=== PATIENT | male | born 1960 | race Caucasian/White ===

== ENCOUNTER 2021-03-13 10:34 | Inpatient (IN) | payer SELFPAY ==
[2021-03-13] VITALS (11 sets, daily range): BP systolic 128–184; BP diastolic 66–100
[~2021-03-13] VITALS: Ht 172.7 cm; Wt 60.4 kg
[2021-03-13 11:02] LABS: BASO # 0.1 10*3/uL (0.0-0.1); BASO % 0.6 % (0.0-1.0); EOS # 0.2 10*3/uL (0.0-0.4); HEMATOCRIT 46.8 % (42.0-52.0); LYMPH # 1.4 10*3/uL (1.3-4.4); LYMPH % 17.6 % (27.0-41.0); MEAN CORPUSCULAR HGB 31.4 pg (27.0-31.0); MEAN CORPUSCULAR HGB CONC 33.8 g/dl (33.0-37.0); MEAN PLATELET VOLUME 9.2 fl (9.6-12.3); MONO # 0.6 10*3/uL (0.1-1.0); MONO % 7.9 % (3.0-9.0); NEUT # 5.5 10*3/uL (2.3-7.9); NEUT % 70.6 % (47.0-73.0); PLATELET COUNT AUTOMATED 255 10*3/uL (130-400); RED BLOOD COUNT 5.03 10*6/uL (4.50-5.90); RED CELL DISTRI WIDTH 12.9 % (0-14.5); WHITE BLOOD COUNT 7.7 10*3/uL (4.8-10.8)
[2021-03-13 11:14] LABS: ACT PARTIAL THROMBO TIME 25.9 SECONDS (20.0-32.1)
[2021-03-13 11:18] LABS: ALBUMIN 3.9 gm/dl (3.1-4.5); ALKALINE PHOSPHATASE 63 U/L (45-117); BUN 22 mg/dl (7-24); CHLORIDE 105 mmol/L (98-107); CREATININE 0.86 mg/dL (0.70-1.30); POTASSIUM 4.8 mmol/L (3.5-5.1); SGOT/AST 17 IU/L (3-35); SGPT/ALT 28 U/L (12-78); SODIUM 133 mmol/L (136-145); TOTAL PROTEIN 7.7 gm/dL (6.4-8.2)
[2021-03-14] VITALS: BP 175/90
[2021-03-14 06:17] LABS: BASO % 0.4 % (0.0-1.0); EOS # 0.2 10*3/uL (0.0-0.4); EOS % 2.1 % (1.0-4.0); HEMATOCRIT 41.3 % (42.0-52.0); LYMPH # 1.1 10*3/uL (1.3-4.4); LYMPH % 15.3 % (27.0-41.0); MEAN CELL VOLUME 91.2 fl (80.0-94.0); MEAN CORPUSCULAR HGB 31.1 pg (27.0-31.0); MEAN CORPUSCULAR HGB CONC 34.1 g/dl (33.0-37.0); MEAN PLATELET VOLUME 9.4 fl (9.6-12.3); MONO # 0.6 10*3/uL (0.1-1.0); MONO % 8.7 % (3.0-9.0); NEUT # 5.3 10*3/uL (2.3-7.9); NEUT % 73.2 % (47.0-73.0); PLATELET COUNT AUTOMATED 198 10*3/uL (130-400); RED BLOOD COUNT 4.53 10*6/uL (4.50-5.90); RED CELL DISTRI WIDTH 12.7 % (0-14.5); WHITE BLOOD COUNT 7.3 10*3/uL (4.8-10.8)
[2021-03-14 06:51] LABS: BUN 16 mg/dl (7-24); CHLORIDE 103 mmol/L (98-107); CHOLESTEROL 184 mg/dL (<200); SODIUM 134 mmol/L (136-145)
[2021-03-14 06:57] LABS: CREATININE 0.66 mg/dL (0.70-1.30); LDL CHOLESTEROL 107 mg/dL (9-159); TRIGLYCERIDES 41 mg/dl (<150)
[2021-03-14 08:00] VITALS: BP 160/85
[2021-03-14 09:19] VITALS: BP 140/70
[2021-03-14 12:00] VITALS: BP 148/77
[2021-03-14 16:00] VITALS: BP 147/69
[2021-03-14 20:00] VITALS: BP 144/47
[2021-03-15] VITALS: BP 139/81
[2021-03-15 06:23] LABS: BASO % 0.6 % (0.0-1.0); EOS # 0.3 10*3/uL (0.0-0.4); EOS % 5.1 % (1.0-4.0); HEMATOCRIT 42.8 % (42.0-52.0); LYMPH # 1.5 10*3/uL (1.3-4.4); LYMPH % 24.2 % (27.0-41.0); MEAN CELL VOLUME 91.6 fl (80.0-94.0); MEAN CORPUSCULAR HGB 31.3 pg (27.0-31.0); MEAN CORPUSCULAR HGB CONC 34.1 g/dl (33.0-37.0); MEAN PLATELET VOLUME 9.6 fl (9.6-12.3); MONO # 0.7 10*3/uL (0.1-1.0); MONO % 11.3 % (3.0-9.0); NEUT # 3.7 10*3/uL (2.3-7.9); NEUT % 58.5 % (47.0-73.0); PLATELET COUNT AUTOMATED 217 10*3/uL (130-400); RED BLOOD COUNT 4.67 10*6/uL (4.50-5.90); WHITE BLOOD COUNT 6.3 10*3/uL (4.8-10.8)
[2021-03-15 06:49] LABS: BUN 9 mg/dl (7-24); CHLORIDE 109 mmol/L (98-107); CREATININE 0.56 mg/dL (0.70-1.30); POTASSIUM 3.8 mmol/L (3.5-5.1); SODIUM 136 mmol/L (136-145)
[2021-03-15 08:00] VITALS: BP 144/94
[2021-03-15 12:00] VITALS: BP 133/75
[2021-03-15 16:00] VITALS: BP 134/72
[2021-03-15 20:00] VITALS: BP 136/87
[2021-03-16] VITALS: BP 118/66
[2021-03-16 08:00] VITALS: BP 146/78
[2021-03-16 12:00] VITALS: BP 115/63
== END 2021-03-16 12:22 | disposition home or self-care (01) | DRG 199 ==
LOC: ED 10:34 → EDHOLD 12:02 → 4E 12:02
PROVIDERS: Emergency Medicine; Family Medicine; Social Worker Clinical; ADMIT Internal Medicine; ATTEND Internal Medicine
PROC: 0W9930Z Drainage of Right Pleural Cavity with Drainage Device, Percutaneous Approach (ICD-10-PCS; principal; 2021-03-13)
DX: S27.0XXA Traumatic pneumothorax, initial encounter (principal); J96.90 Respiratory failure, unspecified, unspecified whether with hypoxia or hypercapnia; S22.41XA Multiple fractures of ribs, right side, initial encounter for closed fracture; E87.1 Hypo-osmolality and hyponatremia; J98.11 Atelectasis; R03.0 Elevated blood-pressure reading, without diagnosis of hypertension; E87.8 Other disorders of electrolyte and fluid balance, not elsewhere classified; R73.9 Hyperglycemia, unspecified; Z72.0 Tobacco use; W55.12XA Struck by horse, initial encounter; Y93.89 Activity, other specified; Y92.89 Other specified places as the place of occurrence of the external cause; Y99.8 Other external cause status